=== PATIENT | female | born 1940 | race Caucasian/White ===

== ENCOUNTER 2018-04-21 16:21 | Inpatient (IN) | payer MEDICARE, MEDICAID ==
[~2018-04-21] VITALS: Ht 167.6 cm; Wt 133.4 kg
[~2018-04-21 16:21] MED LIST: AMITRIPTYLINE H25 M2 PO; BACTROBAN15 GM TP; COMBIVENT INH; FLEXERIL PO; LOVENOX; MUCINEX DM TABL1 TA1 PO; NORCO 5-325 TA1 EACH PO; OMEPRAZOLE20 M2 PO; PANTOPROZOLE PO; PREDNISONE 10 M10 MG PO; ROBITUSSIN15 MG PO; SINGULAIR 10 MG10 M1 PO; THEO-DUR200 MG PO; TIROSINT75 MCG PO; VICODIN 5-5001 EACH PO; VITAMIN D1000 UNI1 PO; XOPENEX HF1 UDINHALE IH; XOPENEX HFA15 GM IH; ZPAK PO; ZYRTEC 10 MG TA10 MG PO
[2018-04-21 16:26] VITALS: BP 116/40
[2018-04-21] MEDS ORDERED: XANAX 0.5 MG0.5 MG PO (16:39)
[2018-04-21] MEDS ORDERED: NORCO 5-325 TA1 EACH PO (16:39)
[2018-04-21] MEDS ORDERED: VENTOLIN HFA 1818 GM INH (16:39)
[2018-04-21] MEDS ORDERED: COMBIVENT RESPIM4 GM INH (16:39)
[2018-04-21] MEDS ORDERED: METHOTREXATE 22.5 MG PO (16:43)
[2018-04-21] MEDS ORDERED: B-COMPLEX WITH1 EAC2 PO (16:44)
[2018-04-21] MEDS ORDERED: VISTARIL 25 MG25 M1 PO (16:44)
[2018-04-21] MEDS ORDERED: FOLIC ACID0.4 MG PO (16:44)
[2018-04-21] MEDS ORDERED: NICOTINE TRANSD21 M1 (16:45)
[2018-04-21] MEDS ORDERED: NYAMYC15 GM TOP (16:45)
[2018-04-21 17:26] LABS: ABSOLUTE BASOPHILS 0.1 thou/uL (0.0-0.2); ABSOLUTE EOSINOPHILS 0.4 thou/uL (0.0-0.7); ABSOLUTE LYMPHOCYTES 1.2 thou/uL (0.8-5.3); ABSOLUTE MONOCYTES 0.6 thou/uL (0.0-1.2); ABSOLUTE NEUTROPHILS 5.1 thou/uL (1.6-8.1); BASOPHILS 1.2 %; EOSINOPHILS 5.1 %; HEMATOCRIT 29.6 % (37.0-47.0); HEMOGLOBIN 9.2 gm/dL (12.0-15.0); LYMPHOCYTES 16.3 %; MCH 27.7 pg (26.0-34.0); MCHC 31.1 g/dL (28.0-37.0); MONOCYTES 8.1 %; MPV 7.2 fl. (7.2-11.1); NUCLEATED RBCS 0 /100WBC; PLATELET COUNT* 318 thou/uL (150-400); POLYS 69.3 %; RBC 3.33 mil/uL (4.20-5.00); RDW-CV 18.6 % (10.5-14.5); WBC 7.4 thou/uL (4.0-11.0)
[2018-04-21 17:32] LABS: BE 10.4 mmol/L (-2 to +3); HCO3 37.6 mmol/L (22.0-26.0); PO2 104.2 mmHg (75.0-100.0); pH 7.362 (7.340-7.450)
[2018-04-21 17:34] LABS: ANION GAP < 0 mmol/L (7-16); BUN 15 mg/dL (7-18); CALCIUM 8.6 mg/dL (8.5-10.1); CHLORIDE 99 mmol/L (98-107); CO2 44 mmol/L (21-32); CREATININE 0.8 mg/dL (0.6-1.3); GLUCOSE 99 mg/dL (70-99); POTASSIUM 4.2 mmol/L (3.5-5.1); SODIUM 141 mmol/L (136-145)
[2018-04-21 17:34] LABS: PCO2 67.8 mmHg (35.0-45.0)
[2018-04-21 17:35] LABS: APTT 26.9 Seconds (25.0-31.3); PROTIME 9.8 Seconds (9.20-11.50)
[2018-04-21 17:44] LABS: ALKALINE PHOSPHATASE 66 U/L (46-116); NT-PRO BRAIN NAT PEPTIDE 406 pg/mL (<300); SGOT 20 U/L (15-37); SGPT 27 U/L (30-65); TOTAL BILIRUBIN 0.5 mg/dL (<0.1-1.0); TOTAL PROTEIN 6.9 g/dL (6.4-8.2); TROPONIN-I LEVEL <0.06 ng/mL (<0.06)
[2018-04-21 18:19] LABS: URINE BILIRUBIN NEGATIVE (Negative); URINE BLOOD NEGATIVE (Negative); URINE CLARITY CLEAR; URINE COLOR YELLOW; URINE GLUCOSE-RANDOM NEGATIVE (Negative); URINE KETONES NEGATIVE (Negative); URINE LEUKOCYTES-REFLEX NEGATIVE (Negative); URINE NITRITE-REFLEX NEGATIVE (Negative); URINE PROTEIN NEGATIVE (Negative); URINE UROBILINOGEN 0.2 E.U./dl (0.2-1.0)
[2018-04-21 19:35] VITALS: BP 131/53
[2018-04-21 20:00] VITALS: BP 111/59
[2018-04-22] VITALS: BP 100/51
[2018-04-22 04:00] VITALS: BP 96/33
[2018-04-22 04:26] LABS: ABSOLUTE EOSINOPHILS 0.4 thou/uL (0.0-0.7); ABSOLUTE MONOCYTES 0.6 thou/uL (0.0-1.2); ABSOLUTE NEUTROPHILS 3.9 thou/uL (1.6-8.1); BASOPHILS 0.7 %; EOSINOPHILS 6.1 %; HEMATOCRIT 26.5 % (37.0-47.0); HEMOGLOBIN 8.1 gm/dL (12.0-15.0); LYMPHOCYTES 17.1 %; MCH 27.4 pg (26.0-34.0); MCHC 30.6 g/dL (28.0-37.0); MCV 89.6 fL (80.0-100.0); MONOCYTES 10.4 %; MPV 7.4 fl. (7.2-11.1); NUCLEATED RBCS 0 /100WBC; PLATELET COUNT* 298 thou/uL (150-400); POLYS 65.7 %; RBC 2.96 mil/uL (4.20-5.00); RDW-CV 18.1 % (10.5-14.5); WBC 5.9 thou/uL (4.0-11.0)
[2018-04-22 04:43] LABS: ANION GAP < 0 mmol/L (7-16); BUN 14 mg/dL (7-18); CALCIUM 8.2 mg/dL (8.5-10.1); CHLORIDE 101 mmol/L (98-107); CO2 44 mmol/L (21-32); CREATININE 0.8 mg/dL (0.6-1.3); GLUCOSE 110 mg/dL (70-99); POTASSIUM 3.9 mmol/L (3.5-5.1); SODIUM 140 mmol/L (136-145)
[2018-04-22 08:00] VITALS: BP 123/53
--- NOTE | 2018-04-22 10:38 | EKG ---
[place] [address] ELECTROCARDIOGRAM REPORT Name: TEE KOLB Room: [address] ADM IN ..#: [id number] Admission: 04/21/18 Attend Phys: Malik Newell MD Discharge: Date of : 38 Report #: [id number] THIS REPORT FOR: //name// [facility] ED Test Date: 2018-04-21 Test Time: 17:06:45 Pat Name: TEE KOLB Department: Room: [facility] Gender: F Manager Hi: : 1940 Requested By: Bethany Herrera Order Number: [id number] MD: Kun Lopez Measurements Intervals [place] Rate: 94 P: 76 NC: 189 QRS: 34 QRSD: 98 T: 34 QT: 344 QTc: 431 Interpretive Statements Sinus rhythm Atrial premature complexes RSR' in V1 or V2, right VCD or RVH Compared to ECG 03/02/2011 15:57:19 Atrial premature complex(es) now present RSR' in V1 or V2 now present pac's noted Electronically Signed On 04-22-2018 10:38:24 CDT by Kun Lopez [email or web address] <ELECTRONICALLY SIGNED> By: Kun Lopez MD, FACC 04/22/18 1038 1706 1706 Kun Lopez MD, FACC /EPI
[2018-04-22 12:01] VITALS: BP 118/46
[2018-04-22 15:45] VITALS: BP 107/47
[2018-04-22 19:45] VITALS: BP 139/60
[2018-04-23] VITALS: BP 111/51
[2018-04-23 04:00] VITALS: BP 121/45
[2018-04-23 05:09] LABS: ABSOLUTE EOSINOPHILS 0.3 thou/uL (0.0-0.7); ABSOLUTE LYMPHOCYTES 1.1 thou/uL (0.8-5.3); ABSOLUTE MONOCYTES 0.7 thou/uL (0.0-1.2); ABSOLUTE NEUTROPHILS 4.3 thou/uL (1.6-8.1); BASOPHILS 0.8 %; EOSINOPHILS 5.2 %; HEMATOCRIT 26.7 % (37.0-47.0); HEMOGLOBIN 8.3 gm/dL (12.0-15.0); LYMPHOCYTES 17.1 %; MCH 28.1 pg (26.0-34.0); MCHC 31.2 g/dL (28.0-37.0); MCV 90.1 fL (80.0-100.0); MONOCYTES 10.8 %; MPV 7.4 fl. (7.2-11.1); NUCLEATED RBCS 0 /100WBC; PLATELET COUNT* 295 thou/uL (150-400); POLYS 66.1 %; RBC 2.96 mil/uL (4.20-5.00); WBC 6.4 thou/uL (4.0-11.0)
[2018-04-23 06:10] LABS: ALBUMIN 2.6 g/dL (3.4-5.0); ALKALINE PHOSPHATASE 59 U/L (46-116); ANION GAP < 0 mmol/L (7-16); BUN 14 mg/dL (7-18); CALCIUM 8.5 mg/dL (8.5-10.1); CHLORIDE 99 mmol/L (98-107); CO2 44 mmol/L (21-32); CREATININE 0.9 mg/dL (0.6-1.3); GLUCOSE 124 mg/dL (70-99); SGOT 15 U/L (15-37); SGPT 21 U/L (30-65); SODIUM 140 mmol/L (136-145); TOTAL BILIRUBIN 0.4 mg/dL (<0.1-1.0); TOTAL PROTEIN 6.6 g/dL (6.4-8.2)
[2018-04-23 08:00] VITALS: BP 124/55
[2018-04-23 09:42] LABS: BE 18.7 mmol/L (-2 to +3); PO2 66.5 mmHg (75.0-100.0); pH 7.332 (7.340-7.450)
[2018-04-23 09:45] LABS: PCO2 92.4 mmHg (35.0-45.0)
[2018-04-23 09:46] LABS: HCO3 47.8 mmol/L (22.0-26.0)
[2018-04-23 12:00] VITALS: BP 102/46
--- NOTE | 2018-04-23 16:41 | 2DMMODE ---
[place] [address] 2 D/M-MODE ECHOCARDIOGRAM Name: TEE KOLB Room: [address] IN [facility]#: [id number] Admission: 04/21/18 Attend Phys: Malik Newell, Discharge: Date of : 38 Date of Service: 04/23/18 1641 Report #: [id number] THIS REPORT FOR: //name// APPROVED REPORT Study performed: 04/23/2018 15:10:14 EXAM: Comprehensive 2D, Doppler, and color-flow Echocardiogram Patient Location: In-Patient Room #: [facility] [place] Status: routine BSA: 2.33 HR: 91 bpm BP: 102/46 mmHg Rhythm: NSR Other Information Study Quality: GoodTechnically Limited Indications Dyspnea 2D Dimensions LVEF(%): 67.72 (>50%) IVSd: 15.94 (7-11mm) LVOT Diam: 20.47 (18-24mm) LVDd: 40.70 mm PWd: 13.92 (7-11mm) Ascending Ao: 27.64 (22-36mm) LVDs: 25.54 (25-40mm) Aortic Root: 28.64 mm Petersen's LVEF: 67.72 % Volumes Left Atrial Volume (Systole) LA ESV Index: 41.80 mL/m2 Aortic Valve AoV Peak Diallo.: 1.98 m/s AO Peak Gr.: 15.68 mmHg LVOT Max P.59 mmHg AO Mean Gr.: 9.12 mmHg LVOT Mean P.88 mmHg LVOT Max V: 1.28 m/s AO V2 VTI: 39.17 cm LVOT Mean V: 0.76 m/s FABRICIO (VTI): 2.32 cm2 LVOT V1 VTI: 27.64 cm Mitral Valve E/A Ratio: 1.09 [place] [address] 2 D/M-MODE ECHOCARDIOGRAM Name: KENNEDITEE Room: [address] IN .R.#: [id number] Admission: 04/21/18 Attend Phys: Malik Newell, Discharge: Date of : 38 Date of Service: 04/23/18 1641 Report #: [id number] MV Decel. Time: 234.13 ms MV E Max Diallo.: 1.30 m/s MV PHT: 67.90 ms MVA (PHT): 3.24 cm2 TDI E/Lateral E': 10.00 E/Medial E': 11.82 Medial E' Diallo.: 0.11 m/s Lateral E' Diallo.: 0.13 m/s Pulmonary Valve PV Peak Diallo.: 1.34 m/s PV Peak Gr.: 7.13 mmHg Tricuspid Valve RAP Estimate: 5.00 mmHg TR Peak Gr.: 37.80 mmHg RVSP: 32.80 mmHg Left Ventricle The left ventricle is normal size. There is normal LV segmental wall motion. Regional wall motion is not well visualized. There is normal left ventricular wall thickness. Left ventricular systolic function is normal. The left ventricular ejection fraction is within the normal range. LVEF is 55-60%. Moderate diastolic dysfunction is present (pseudonormal filling). Right Ventricle The right ventricle is normal size. The right ventricular systolic function is normal. Atria Left atrium is moderately dilated. The right atrium size is normal. Aortic Valve The aortic valve is normal in structure. Aortic valve is not well visualized. No aortic regurgitation is present. There is no aortic valvular stenosis. Mitral Valve The mitral valve is normal in structure. Mild mitral regurgitation. No evidence of mitral valve stenosis. Tricuspid Valve The tricuspid valve is normal in structure. mild tricuspid regurgitation. Moderate pulmonary hypertension.Estimated PAP 38mmHg . [place] [address] 2 D/M-MODE ECHOCARDIOGRAM Name: TEE KOLB Room: [address] IN M.R.#: [id number] Admission: 04/21/18 Attend Phys: Malik Newell, Discharge: Date of : 38 Date of Service: 04/23/18 1641 Report #: [id number] Pulmonic Valve The pulmonary valve is normal in structure. There is no pulmonic valvular regurgitation. Great Vessels The aortic root is normal in size. IVC is normal in size and collapses with >50% inspiration Pericardium There is no pericardial effusion. <Conclusion> LVEF is 55-60%. There is normal LV segmental wall motion. Left atrium is moderately dilated. Moderate diastolic dysfunction is present (pseudonormal filling). There is no aortic valvular stenosis. No aortic regurgitation is present. Mild mitral regurgitation. mild tricuspid regurgitation. Moderate pulmonary hypertension.Estimated PAP 38mmHg . <ELECTRONICALLY SIGNED> By: Lucas Asencio MD, FACC 04/23/181640 40 40 Lucas Asencio MD, FACC /INF
[2018-04-23 20:00] VITALS: BP 140/60
[2018-04-24 00:58] VITALS: BP 102/45
[2018-04-24 04:00] VITALS: BP 123/47
[2018-04-24 05:02] LABS: HEMATOCRIT 27.2 % (37.0-47.0); HEMOGLOBIN 8.4 gm/dL (12.0-15.0); MCH 27.4 pg (26.0-34.0); MCHC 30.9 g/dL (28.0-37.0); MCV 88.8 fL (80.0-100.0); MPV 7.5 fl. (7.2-11.1); NUCLEATED RBCS 0 /100WBC; PLATELET COUNT* 298 thou/uL (150-400); RBC 3.07 mil/uL (4.20-5.00); RDW-CV 17.9 % (10.5-14.5); WBC 6.7 thou/uL (4.0-11.0)
[2018-04-24 05:15] LABS: PREALBUMIN 14.4 mg/dL (18.0-35.7)
[2018-04-24 05:44] LABS: ALBUMIN 2.5 g/dL (3.4-5.0); ALKALINE PHOSPHATASE 61 U/L (46-116); ANION GAP < 0 mmol/L (7-16); BUN 12 mg/dL (7-18); CALCIUM 8.2 mg/dL (8.5-10.1); CHLORIDE 98 mmol/L (98-107); CO2 41 mmol/L (21-32); CREATININE 0.8 mg/dL (0.6-1.3); GLUCOSE 150 mg/dL (70-99); MAGNESIUM 1.3 mg/dL (1.8-2.4); POTASSIUM 4.3 mmol/L (3.5-5.1); SGOT 14 U/L (15-37); SGPT 18 U/L (30-65); SODIUM 138 mmol/L (136-145); TOTAL BILIRUBIN 0.4 mg/dL (<0.1-1.0); TOTAL PROTEIN 6.6 g/dL (6.4-8.2)
[2018-04-24 05:51] LABS: ABSOLUTE LYMPHOCYTES 0.5 thou/uL (0.8-5.3); ABSOLUTE NEUTROPHILS 6.2 thou/uL (1.6-8.1)
[2018-04-24 05:52] LABS: ANISOCYTOSIS 1+; PLATELET ESTIMATE ADEQUATE; POIKILOCYTOSIS 1+
[2018-04-24 08:00] VITALS: BP 147/79
[2018-04-24 12:00] VITALS: BP 133/53
--- NOTE | 2018-04-24 13:07 | CON ---
[address] [address] CONSULTATION Name: KENNEDITEE Room: [address] IN M.R.#: [id number] Admission: 04/21/18 Attend Phys: Malik Newell MD Discharge: Date of : 38 Report #: [id number] THIS REPORT FOR: //name// CC: Malik Newell Royer Dotson DATE OF SERVICE: 04/23/2018 CONSULT REQUESTED BY: Malik Newell MD INDICATION FOR CONSULTATION: Acute hypercarbic respiratory failure. HISTORY OF PRESENT ILLNESS: This is 77 years old female whose past medical history includes history of oxygen dependent COPD. The patient reports that she does not follow with a [facility]. The patient does have a history of breast cancer as well. The patient also has reported that she is intolerant of steroids, in particular in large doses and these lead to mental status changes, as well as hallucinations. At this time, the patient is initially admitted on 04/21/2018. Presentation was with swelling of lower extremities, as well as erythema of lower extremities. The patient also had increase in shortness of breath. The patient was noted to have cellulitis of lower extremities on admission. The patient reports that she has had an increase in shortness of breath as well. She does have a cough. There is not much sputum production. There is no chest pain. She does not have upper respiratory complaints with the exception of having a postnasal drip. Since admission, the patient has been treated with broad spectrum antibiotics. There has been limitation in IV access and the patient has only had limited IV access. The patient has also been reluctant to accept steroids. Her respiratory status declined this morning. An arterial blood gas showed a pCO2 rising to 92, which is the reason for this consultation. The patient is reported to have been briefly on BiPAP earlier today. She is off BiPAP now. She is saturating well. She is only on 2 L nasal cannula. The patient has had some pain complaints, which are longstanding. She has also had disturbed sleep and sleepiness during the day. These are also longstanding. REVIEW OF SYSTEMS: She answers to the negative for 12 questions for review of systems, except as mentioned above. PAST MEDICAL HISTORY: Breast Cancer followed at , COPD, oxygen dependent, recent admission to another facility with shortness of breath. The patient was a SNF or rehab; however, she decided to go home. Longstanding history of swelling of lower extremities. I do not have a previous echocardiogram available at this time. Breast cancer, gastroesophageal reflux disease, hypothyroidism, anxiety, allergic rhinitis, [place] [address] CONSULTATION Name: TEE KOLB Room: [address] IN ..#: [id number] Admission: 04/21/18 Attend Phys: Malik Newell MD Discharge: Date of : 38 Report #: [id number] Carpio's esophagus, exploratory laparotomy in 1964, total abdominal hysterectomy, ear surgery. She is hard of hearing. Rectal repair several years ago, 4 childbirths, foot surgery. SOCIAL HISTORY: She has an extensive history of smoking. She describes herself as a nonsmoker, but she is reported to have only recently not smoked, otherwise has been smoking more than a pack a day for several decades. No known history of heavy alcohol use or illegal drug use. The patient is noted to be on prescribed sedative medications including benzodiazepines. ALLERGIES: CONTRAST DYE, PENICILLINS as well as SULFONAMIDE ANTIBIOTICS are mentioned as allergies. However, I am not able to verify these allergies. The patient also reports to be allergic to BEE. The patient reports being allergic to PREDNISONE; however, her reaction is hallucinations, which appears to be a side effect. She does not appear to have true prednisone allergy. FAMILY HISTORY: There is no pertinent family history. CURRENT MEDICATIONS: List in [facility] reviewed. PHYSICAL EXAMINATION: GENERAL: She is alert, awake and oriented; however, is able to communicate only to a limited; however, communicates only to a limited extent. She is hard of hearing, VITAL SIGNS: Has a pulse of 91 and a blood pressure of 102/46. She has been saturating in the mid 90s, has been on oxygen 2 to 3 L via nasal cannula. She is afebrile. Her respiratory rate is around 12 to 14. She does have morbid obesity with a body mass index of 46.6. HEENT: Head is normocephalic and atraumatic. Pupils are equal and reactive. There is no throat erythema, narrow airway. NECK: Does not show raised JVP, asymmetry, mass or lymph nodes. CHEST: Symmetrical expansion on inspection and palpation. On auscultation, breath sounds are markedly decreased. Expirations are prolonged. Breath sounds are bilaterally equal. No added sounds. HEART: Regular. There is no murmur. ABDOMEN: Soft and nontender. EXTREMITIES: Lower extremities do show edema. There is also erythema of lower extremities. Lower extremity examination is limited due to the presence of crepe bandages. Skin, however, appears to be dry and and intact over the visible areas. NEUROLOGIC: Moves all extremities bilaterally equally and spontaneously with no focal deficit identified. DATA: The patient's arterial blood gas, which is consistent with xqqje-gw-ohyjxhy hypercarbic respiratory failure in [facility] reviewed. CBC, chemistries, as well as coagulation studies also in [facility] reviewed. [address] [address] CONSULTATION Name: KENNEDITEE Room: [address] IN M.R.#: [id number] Admission: 04/21/18 Attend Phys: Malik Newell MD Discharge: Date of : 38 Report #: [id number] The patient has just had a CT chest reviewed, both the films, as well as the report. There is extensive atelectasis of bilateral lung bases noted. Due to the presence of large areas of atelectasis, it is not possible to rule out infiltrates. There is a hiatal hernia as well, which is large. ASSESSMENT AND PLAN: 1. Iyvgf-pn-hkkwhhx hypercarbic respiratory failure. Noninvasive mechanical ventilation while asleep is required to delay progression of her hypercarbic respiratory failure and therefore delay eventual . The same will therefore be ordered. Unfortunately, the patient may have limited compliance. 2. Chronic obstructive pulmonary disease exacerbation. While steroids may lead to side effects such as hallucinations, they do appear to be medically necessary at this time. I discussed with the patient. Initially I favored using IV Solu-Medrol. The patient, however, appeared to be reluctant, therefore I discussed with her taking prednisone with each meal and she did agree. The same is ordered. I also made her nebulizer regimen more aggressive. We will continue with the same. 3. Extensive atelectasis/pulmonary infiltrates. There are large areas of atelectasis noted at bilateral lung bases. Due to the presence of atelectasis, it is not possible to state whether infiltrates are present in this region as well or not. The patient already is on broad spectrum antibiotics and I agree with the same. Conservative therapy for atelectasis is ordered. If she does wear average volume pressure support while asleep, then she will also benefit from the same. Suggest ambulating the patient if feasible and limiting use of narcotics if possible. 4. Cellulitis. Discussion as above. 5. Swelling of lower extremities. We will follow response to the above. Down the line, I may consider giving her additional Lasix and Diamox as well. Her blood pressure is on the lower side. We will need to watch the same. We may consider giving her midodrine for this reason. 6. Deep vein thrombosis prophylaxis. She is on Lovenox. 7. Gastroesophageal reflux disease/Carpio's esophagus. She remains on a proton pump inhibitor. Thanks for this consultation. <ELECTRONICALLY SIGNED> By: Be Cast MD 04/24/18 1307 1249 0421Aleo Cast MD /nt
[2018-04-24 16:00] VITALS: BP 143/72
[2018-04-24 19:45] VITALS: BP 128/61
[2018-04-25] VITALS: BP 168/72
[2018-04-25 04:00] VITALS: BP 134/59
[2018-04-25 05:21] LABS: ABSOLUTE LYMPHOCYTES 0.5 thou/uL (0.8-5.3); ABSOLUTE MONOCYTES 0.4 thou/uL (0.0-1.2); ABSOLUTE NEUTROPHILS 5.5 thou/uL (1.6-8.1); BASOPHILS 0.5 %; HEMATOCRIT 27.6 % (37.0-47.0); HEMOGLOBIN 8.5 gm/dL (12.0-15.0); LYMPHOCYTES 8.4 %; MCH 27.3 pg (26.0-34.0); MCHC 30.9 g/dL (28.0-37.0); MCV 88.4 fL (80.0-100.0); MONOCYTES 6.7 %; MPV 7.1 fl. (7.2-11.1); NUCLEATED RBCS 0 /100WBC; PLATELET COUNT* 339 thou/uL (150-400); POLYS 84.4 %; RBC 3.12 mil/uL (4.20-5.00); RDW-CV 18.1 % (10.5-14.5); WBC 6.5 thou/uL (4.0-11.0)
[2018-04-25 06:02] LABS: PREALBUMIN 15.9 mg/dL (18.0-35.7)
[2018-04-25 06:14] LABS: ALBUMIN 2.6 g/dL (3.4-5.0); CALCIUM 8.9 mg/dL (8.5-10.1); CREATININE 0.9 mg/dL (0.6-1.3); MAGNESIUM 2.1 mg/dL (1.8-2.4); POTASSIUM 4.7 mmol/L (3.5-5.1); TOTAL BILIRUBIN 0.3 mg/dL (<0.1-1.0); TOTAL PROTEIN 6.7 g/dL (6.4-8.2)
[2018-04-25 07:56] VITALS: BP 131/55
[2018-04-25 12:22] VITALS: BP 149/68
[2018-04-25 13:06] LABS: BE 11.9 mmol/L (-2 to +3); HCO3 39.2 mmol/L (22.0-26.0); PO2 63.2 mmHg (75.0-100.0); pH 7.379 (7.340-7.450)
[2018-04-25 17:07] VITALS: BP 141/74
[2018-04-25 19:10] VITALS: BP 160/78
[2018-04-26] VITALS: BP 118/55
[2018-04-26 05:34] LABS: CALCIUM 8.9 mg/dL (8.5-10.1); CREATININE 0.9 mg/dL (0.6-1.3); POTASSIUM 3.9 mmol/L (3.5-5.1)
[2018-04-26 08:15] VITALS: BP 117/74
[2018-04-26 12:17] VITALS: BP 143/71
[2018-04-26 15:47] VITALS: BP 152/81
[2018-04-26 20:00] VITALS: BP 130/59
[2018-04-27] VITALS: BP 148/70
[2018-04-27 04:00] VITALS: BP 154/65
[2018-04-27 04:45] LABS: HEMATOCRIT 29.8 % (37.0-47.0); HEMOGLOBIN 9.1 gm/dL (12.0-15.0); MCH 27.3 pg (26.0-34.0); MCHC 30.5 g/dL (28.0-37.0); MCV 89.4 fL (80.0-100.0); MPV 7.3 fl. (7.2-11.1); RBC 3.33 mil/uL (4.20-5.00); WBC 5.8 thou/uL (4.0-11.0)
[2018-04-27 05:06] LABS: MAGNESIUM 1.8 mg/dL (1.8-2.4); POTASSIUM 4.6 mmol/L (3.5-5.1)
[2018-04-27 09:00] VITALS: BP 131/62
[2018-04-27 11:52] VITALS: BP 142/70
[2018-04-27 16:02] VITALS: BP 135/56
[2018-04-27 20:00] VITALS: BP 142/65
[2018-04-28] VITALS (7 sets, daily range): BP systolic 114–156; BP diastolic 54–71
[2018-04-29 03:55] VITALS: BP 155/78
[2018-04-29 08:00] VITALS: BP 155/78
[2018-04-29 11:34] VITALS: BP 141/57
[2018-04-29] MEDS ORDERED: MUCINEX600 MG PO (14:28)
[2018-04-29] MEDS ORDERED: MINOCIN100 MG PO (14:28)
[2018-04-29] MEDS ORDERED: PREDNISONE 20 M20 MG PO (14:28)
[2018-04-29] MEDS ORDERED: LASIX 40 MG TAB40 M1 PO (14:28)
[2018-04-29 15:00] VITALS: BP 141/57
[2018-04-29 15:44] VITALS: BP 156/77
== END 2018-04-29 16:40 | disposition home health service (06) | DRG 177 ==
LOC: M.ERS 16:21 → M.2W 18:03 → M.TBA-ER 18:03 → M.2W 19:45
PROVIDERS: Family Medicine; Internal Medicine Critical Care Medicine; Personal Emergency Response Attendant; ADMIT Internal Medicine
PROC: 5A09357 Assistance with Respiratory Ventilation, Less than 24 Consecutive Hours, Continuous Positive Airway Pressure (ICD-10-PCS; principal; 2018-04-24)
PROC: 5A09357 Assistance with Respiratory Ventilation, Less than 24 Consecutive Hours, Continuous Positive Airway Pressure (ICD-10-PCS; 2018-04-25)
DX: J15.6 Pneumonia due to other Gram-negative bacteria (principal); J96.22 Acute and chronic respiratory failure with hypercapnia; L03.116 Cellulitis of left lower limb; L03.115 Cellulitis of right lower limb; R65.10 Systemic inflammatory response syndrome (SIRS) of non-infectious origin without acute organ dysfunction; J44.1 Chronic obstructive pulmonary disease with (acute) exacerbation; J98.11 Atelectasis; Z68.42 Body mass index [BMI] 45.0-49.9, adult; E66.2 Morbid (severe) obesity with alveolar hypoventilation; J44.0 Chronic obstructive pulmonary disease with (acute) lower respiratory infection; K21.9 Gastro-esophageal reflux disease without esophagitis; E03.9 Hypothyroidism, unspecified; I50.9 Heart failure, unspecified; F41.9 Anxiety disorder, unspecified; K22.70 Barrett's esophagus without dysplasia; I27.81 Cor pulmonale (chronic); H91.90 Unspecified hearing loss, unspecified ear; Z99.81 Dependence on supplemental oxygen; Z87.891 Personal history of nicotine dependence; Z85.3 Personal history of malignant neoplasm of breast; Z90.710 Acquired absence of both cervix and uterus; Z79.899 Other long term (current) drug therapy; Z88.0 Allergy status to penicillin; Z88.2 Allergy status to sulfonamides; Z88.8 Allergy status to other drugs, medicaments and biological substances; Z91.041 Radiographic dye allergy status